=== PATIENT | female | born 1975 | race Two or more races ===

== ENCOUNTER 2017-08-03 23:03 | Emergency (ER) | payer MEDICAID ==
[~2017-08-03] VITALS: Ht 160 cm; Wt 78.9 kg
[~2017-08-03 23:03] MED LIST: DABI150C PO; HYDR200T OR; MECL-87 PO
[2017-08-03 23:29] LABS: Basophils # (auto) 0.1 uL; Basophils % (auto) 0.5 % (0.0-2.0); Eosinophils # (auto) 0.2 uL; Eosinophils % (auto) 1.8 % (0.0-7.0); Hematocrit 41.6 % (36.0-46.0); Hemoglobin 14.1 g/dL (12.2-16.2); Lymphocytes # (auto) 3.1 uL; Lymphocytes % (auto) 22.5 % (10.0-50.0); Mean Corpuscular Hgb Conc. 33.8 g/dL (32.0-36.0); Mean Corpuscular Volume 94.6 fL (80.0-100.0); Monocytes # (auto) 0.9 uL; Monocytes % (auto) 6.5 % (0.0-12.0); Neutrophils # (auto) 9.4 uL; Neutrophils % (auto) 68.7 % (37.0-80.0); Nucleated Red Blood Cells % 0.1 %; Platelet Count (auto) 300 10^3/uL (140-450); Red Cell Distribution Width 13.8 % (11.8-14.3); White Blood Cell 13.7 10^3/uL (4.4-10.8)
[2017-08-03 23:44] LABS: INR 1.01 (0.9-1.15); Partial Thromboplastin Time 63.4 sec (22.64-33.71)
[2017-08-03 23:46] LABS: Albumin 3.5 g/dL (3.4-5.0); Anion Gap 9 (5-15); Aspartate Aminotransferase 10 U/L (15-37); BUN/Creatinine Ratio 14.4; Blood Urea Nitrogen 18 mg/dL (7-18); Calcium 8.3 mg/dL (8.5-10.1); Carbon Dioxide 22 mmol/L (21-32); Chloride 109 mmol/L (98-107); GFR African American 60 mL/min; GFR Non-African American 50 mL/min; Glucose 123 mg/dL (74-106); Magnesium 2.2 mg/dL (1.6-2.6); Potassium 3.9 mmol/L (3.5-5.1); Sodium 140 mmol/L (136-145)
[2017-08-03] MEDS ORDERED: LORazepam 2MG/ML-1ML VIAL ONE (23:49)
[2017-08-03 23:52] LABS: Alkaline Phosphatase 101 U/L (45-117); Bilirubin, Total 0.2 mg/dL (0.2-1.0); Total Protein 7.5 g/dL (6.4-8.2)
[2017-08-04] MEDS ORDERED: LORazepam 2MG/ML-1ML VIAL IV ONE
[2017-08-04 00:44] VITALS: BP 111/74
== END 2017-08-04 03:10 | disposition home or self-care (01) ==
LOC: ER 23:06
DX: F41.9 Anxiety disorder, unspecified (principal); M19.90 Unspecified osteoarthritis, unspecified site; N18.3 Chronic kidney disease, stage 3 (moderate); Z79.899 Other long term (current) drug therapy; Z87.39 Personal history of other diseases of the musculoskeletal system and connective tissue
CPT/HCPCS: 36415; 70450; 80053; 83735; 84484; 84702; 85025; 85610; 85730; 93005; 96374; 99285; J2060

== ENCOUNTER 2017-08-17 00:21 | Emergency (ER) | payer MEDICAID ==
[~2017-08-17] VITALS: Ht 160 cm; Wt 81.6 kg
[2017-08-17 00:53] LABS: Basophils # (auto) 0 uL; Basophils % (auto) 0.3 % (0.0-2.0); Eosinophils # (auto) 0.2 uL; Eosinophils % (auto) 2.2 % (0.0-7.0); Hematocrit 38.9 % (36.0-46.0); Hemoglobin 13.3 g/dL (12.2-16.2); Lymphocytes # (auto) 2.8 uL; Lymphocytes % (auto) 31.8 % (10.0-50.0); Mean Corpuscular Hemoglobin 32.2 pg (28.0-32.0); Mean Corpuscular Hgb Conc. 34.2 g/dL (32.0-36.0); Mean Corpuscular Volume 94.1 fL (80.0-100.0); Mean Platelet Volume 8.2 fL (6.9-10.8); Monocytes # (auto) 0.6 uL; Monocytes % (auto) 7.1 % (0.0-12.0); Neutrophils # (auto) 5.2 uL; Neutrophils % (auto) 58.6 % (37.0-80.0); Nucleated Red Blood Cells % 0.1 %; Platelet Count (auto) 294 10^3/uL (140-450); Red Cell Distribution Width 13.5 % (11.8-14.3); White Blood Cell 8.8 10^3/uL (4.4-10.8)
[2017-08-17 01:16] LABS: Albumin 3.5 g/dL (3.4-5.0); Anion Gap 7 (5-15); Aspartate Aminotransferase 14 U/L (15-37); BUN/Creatinine Ratio 13.9; Blood Urea Nitrogen 11 mg/dL (7-18); Calcium 8.2 mg/dL (8.5-10.1); Carbon Dioxide 24 mmol/L (21-32); Chloride 110 mmol/L (98-107); GFR African American 102 mL/min; GFR Non-African American 84 mL/min; Glucose 97 mg/dL (74-106); Magnesium 2.4 mg/dL (1.6-2.6); Potassium 3.6 mmol/L (3.5-5.1); Sodium 141 mmol/L (136-145)
[2017-08-17 01:17] LABS: Acetaminophen < 2.0 ug/mL (10-30); Salicylate 1.8 mg/dL (2.8-20.0)
[2017-08-17 01:18] LABS: Alkaline Phosphatase 81 U/L (45-117); Bilirubin, Total 0.2 mg/dL (0.2-1.0)
[2017-08-17 02:39] LABS: Urine RBC None Seen /hpf (0 - 4)
[2017-08-17 02:48] LABS: Urine Bilirubin Negative (Negative); Urine Blood Negative /uL (Negative); Urine Color Yellow (Yellow); Urine Glucose Normal (Normal); Urine Ketone Negative (Negative); Urine Nitrite Negative (Negative); Urine Urobilinogen Normal (Negative)
[2017-08-17] MEDS ORDERED: SODIUM CHLORIDE 0.9% 1,000 ML IV ONE (03:00)
[2017-08-18] MEDS: DABIGATRAN 75 MG CAP PO SCH ×2 (09:52→22:40)
[2017-08-18] MEDS: HYDROXYCHLOROQUINE SULFATE 200 MG TAB PO SCH ×2 (09:52→22:40)
[2017-08-19] MEDS ORDERED: HYDROXYCHLOROQUINE SULFATE 200 MG TAB ONE ×2 (13:55→22:17)
[2017-08-19] MEDS: DABIGATRAN 75 MG CAP PO SCH ×2 (14:47→22:00)
[2017-08-19] MEDS: HYDROXYCHLOROQUINE SULFATE 200 MG TAB PO SCH ×2 (14:47→22:00)
[2017-08-19 19:45] VITALS: BP 116/80
== END 2017-08-20 14:24 | disposition home or self-care (01) ==
LOC: ER 00:25
DX: T65.92XA Toxic effect of unspecified substance, intentional self-harm, initial encounter (principal); F32.9 Major depressive disorder, single episode, unspecified; R45.851 Suicidal ideations; Y92.89 Other specified places as the place of occurrence of the external cause
CPT/HCPCS: 36415; 51702; 71010; 80053; 80307; 80320; 80329; 81001; 83735; 85025; 93005; 94761; 96360; 96361; 99285; J7030

== ENCOUNTER 2018-03-12 12:47 | Emergency (ER) | payer MEDICAID, OTHER ==
[~2018-03-12] VITALS: Ht 157.5 cm; Wt 80.7 kg
[2018-03-12 13:59] LABS: Basophils # (auto) 0 uL; Basophils % (auto) 0.4 % (0.0-2.0); Eosinophils # (auto) 0.2 uL; Eosinophils % (auto) 2.1 % (0.0-7.0); Hematocrit 42.3 % (36.0-46.0); Hemoglobin 14.5 g/dL (12.2-16.2); Lymphocytes # (auto) 1.9 uL; Lymphocytes % (auto) 22.2 % (10.0-50.0); Mean Corpuscular Hemoglobin 31.9 pg (28.0-32.0); Mean Corpuscular Hgb Conc. 34.2 g/dL (32.0-36.0); Mean Corpuscular Volume 93.3 fL (80.0-100.0); Monocytes # (auto) 0.7 uL; Monocytes % (auto) 8.3 % (0.0-12.0); Neutrophils # (auto) 5.6 uL; Platelet Count (auto) 328 10^3/uL (140-450); Red Blood Cells 4.53 10^6/uL (4.0-5.20); Red Cell Distribution Width 13.4 % (11.8-14.3); White Blood Cell 8.3 10^3/uL (4.4-10.8)
[2018-03-12 14:14] LABS: INR 1.18 (0.9-1.15); Prothrombin Time 12.9 sec (9.37-12.3)
[2018-03-12 14:19] LABS: Partial Thromboplastin Time 99.3 sec (22.64-33.71)
[2018-03-12 14:24] LABS: Albumin 3.5 g/dL (3.4-5.0); BUN/Creatinine Ratio 13.5; Bilirubin, Total 0.3 mg/dL (0.2-1.0); Calcium 8.8 mg/dL (8.5-10.1); Potassium 4.3 mmol/L (3.5-5.1); Total Protein 7.5 g/dL (6.4-8.2)
[2018-03-12] MEDS ORDERED: HYDROcodone-ACET 10/325MG TAB PO ONE (15:15)
[2018-03-12 15:17] VITALS: BP 117/83
== END 2018-03-12 15:47 | disposition home or self-care (01) ==
LOC: ER 12:47
DX: M32.9 Systemic lupus erythematosus, unspecified (principal); Z79.01 Long term (current) use of anticoagulants; E78.5 Hyperlipidemia, unspecified; Z79.899 Other long term (current) drug therapy
CPT/HCPCS: 36415; 80053; 85025; 85610; 85730

== ENCOUNTER 2022-06-30 13:01 | Emergency (ER) | payer MEDICAID ==
[~2022-06-30] VITALS: Ht 165.1 cm; Wt 77.0 kg
[~2022-06-30 13:01] MED LIST changes: -DABI150C PO; +DABI150C5 PO; +HYDR-4188 OR; -HYDR200T OR; -MECL-87 PO; +MECL25TA18 PO
[2022-06-30 13:21] VITALS: BP 94/67
[2022-06-30 13:58] LABS: Basophils # (auto) 0 10 ^3/uL (0-0.2); Basophils % (auto) 0.6 % (0.0-2.0); Eosinophils # (auto) 0.1 10 ^3/uL (0-0.8); Eosinophils % (auto) 1.2 % (0.0-7.0); Hematocrit 40.2 % (36.0-46.0); Hemoglobin 13.2 g/dL (12.2-16.2); Lymphocytes # (auto) 2.2 10 ^3/uL (0.4-5.4); Lymphocytes % (auto) 25.5 % (10.0-50.0); Mean Corpuscular Hemoglobin 30.7 pg (28.0-32.0); Mean Corpuscular Hgb Conc. 32.9 g/dL (32.0-36.0); Mean Corpuscular Volume 93.2 fL (80.0-100.0); Monocytes # (auto) 0.7 10 ^3/uL (0-1.3); Monocytes % (auto) 8.3 % (0.0-12.0); Neutrophils # (auto) 5.6 10 ^3/uL (1.6-8.6); Neutrophils % (auto) 64.4 % (37.0-80.0); Nucleated Red Blood Cells % 0.2 %; Red Blood Cells 4.31 10^6/uL (4.0-5.20); Red Cell Distribution Width 13.7 % (11.8-14.3); White Blood Cell 8.7 10^3/uL (4.4-10.8)
[2022-06-30 13:58] LABS: Urine Bacteria NONE SEEN /hpf (None Seen); Urine Blood Negative /uL (Negative); Urine Specific Gravity 1.011 (1.001-1.035); Urine WBC <1 /hpf (0 - 5)
[2022-06-30 14:12] LABS: Albumin 3.4 g/dL (3.4-5.0); BUN/Creatinine Ratio 15.8; Bilirubin, Total 0.5 mg/dL (0.2-1.0); Calcium 8.6 mg/dL (8.5-10.1); Magnesium 2.5 mg/dL (1.6-2.6); Total Protein 7.3 g/dL (6.4-8.2)
[2022-06-30] MEDS ORDERED: ASPirin 81 mg TAB PO ONE (15:45)
== END 2022-06-30 17:20 | disposition left against medical advice (07) ==
LOC: ER 13:01
DX: I63.9 Cerebral infarction, unspecified (principal); E78.5 Hyperlipidemia, unspecified; Z87.891 Personal history of nicotine dependence
CPT/HCPCS: 36415; 70450; 71045; 80053; 81001; 83735; 85025